=== PATIENT | male | born 1985 | race Caucasian/White ===

== ENCOUNTER 2017-05-30 15:01 | Emergency (ER) | payer SELFPAY ==
[~2017-05-30] VITALS: Wt 86.5 kg
[~2017-05-30 15:01] MED LIST: ALBU8.5H3; ALBU8.5H3 INH; PRED20TA PO
== END 2017-05-30 17:18 | disposition left against medical advice (07) ==
LOC: FTE 15:01
DX: Z53.21 Procedure and treatment not carried out due to patient leaving prior to being seen by health care provider (principal)